=== PATIENT | female | born 1990 | race Caucasian/White ===

== ENCOUNTER 2017-04-10 12:18 | Emergency (ER) | payer MEDICAID ==
[~2017-04-10] VITALS: Ht 167.6 cm; Wt 91.5 kg
[~2017-04-10 12:18] MED LIST: IBUP800T PO; OXYC-302 PO
[2017-04-10] MEDS ORDERED: ACETAMINOPHEN 500 MG TABLET PO ONE (13:00)
[2017-04-10] MEDS ORDERED: KETOROLAC 60 MG/2 ML IM ONE (13:00)
[2017-04-10] MEDS ORDERED: KETOROLAC 30 MG/1 ML ONE (13:04)
[2017-04-10] MEDS ORDERED: ACETAMINOPHEN 500 MG TABLET ONE (13:04)
[2017-04-10 13:27] LABS: BLOOD UREA NITROGEN 13 mg/dL (7-18)
[2017-04-10 13:39] LABS: RAPID INFLUENZA A Negative (Negative); RAPID INFLUENZA B Negative (Negative)
[2017-04-10] MEDS ORDERED: SODIUM CHLORIDE 0.9% 1,000ML IVBOLUS ONE (15:00)
[2017-04-10] MEDS ORDERED: SODIUM CHLORIDE FLUSH 10ML SYR IVF ONE (15:00)
[2017-04-10] MEDS ORDERED: CEFTRIAXONE 1,000 MG in SODIUM CHLORIDE 0.9% 50 ML IVPB ONE (15:00)
[2017-04-10] MEDS ORDERED: CEFTRIAXONE PMX 1GM/50ML 50 ML ONE (15:06)
[2017-04-10] MEDS ORDERED: DIPHENHYDRAMINE 50 MG/ML, 1ML ONE (16:18)
[2017-04-10] MEDS ORDERED: DIPHENHYDRAMINE 50 MG/ML, 1ML IVPush ONE (16:30)
[2017-04-10 17:07] VITALS: BP 123/58
== END 2017-04-10 17:11 | disposition home or self-care (01) ==
LOC: ED 12:59
DX: R50.9 Fever, unspecified (principal)
CPT/HCPCS: 36415; 71010; 80048; 81001; 82040; 83605; 84145; 85025; 87040; 87086; 87400; 96365; 96372; 96375; 99285; J0696; J1200; J1885; J7030

== ENCOUNTER 2019-01-17 12:10 | Emergency (ER) | payer MEDICAID ==
[~2019-01-17] VITALS: Ht 167.6 cm; Wt 92.1 kg
[~2019-01-17 12:10] MED LIST changes: +IBUP-1223 PO; -IBUP800T PO
--- NOTE | 2019-01-17 12:51 | NUR ---
Pt to room from lobby.
--- NOTE | 2019-01-17 13:24 | NUR ---
BREAK RN FOR PRIMARY RN ALISSA. CARE ASSUMED AT THIS TIME. 28 Y/O F PRESENTS TO ER STATING "ABDOMINAL PAIN FOR 1 YEAR BUT WORSE YESTERDAY, PAIN NON-STOP, MY STOMACH FEELS BLOATED AND BIG." RATES PAIN 7/10 IN ABD. CONT PULSE OX, BP MONITORS APPLIED. VSS. ABD SOFT, DISTENDED, TENDER TO PALPATION AT PERIUMBILICAL AREA. BOWEL SOUNDS ACTIVE. FALL PRECAUTIONS IN PLACE. SIDE RAILS UPX2. A&OX4. LAB AT BEDSIDE.
[2019-01-17 13:25] LABS: BASOPHILS # (AUTO) 0.08 x10^3/uL (0-0.1); BASOPHILS % (AUTO) 1 % (0-1); EOSINOPHILS # (AUTO) 0.06 x10^3/uL (0-0.4); EOSINOPHILS % (AUTO) 1 % (1-7); LYMPHOCYTES # (AUTO) 2.36 x10^3/uL (1-3.4); LYMPHOCYTES % (AUTO) 26 % (22-44); MD NO; MEAN CORPUSCULAR HGB CONC 33.2 g/dL (32.4-35.8); MEAN CORPUSCULAR VOLUME 84.4 fL (80-100); MEAN PLATELET VOLUME 8.5 fL (7.4-10.4); MONOCYTES # (AUTO) 0.53 x10^3/uL (0.2-0.8); MONOCYTES % (AUTO) 6 % (2-9); NEUTROPHILS # (AUTO) 6.15 x10^3/uL (1.8-6.8); NEUTROPHILS % (AUTO) 67 % (42-75); PLATELET COUNT 334 x10^3/uL (130-400); RED BLOOD COUNT 4.45 x10^6/uL (3.82-5.3); RED CELL DISTRIBUTION WIDTH 15.8 % (9.6-15.2)
[2019-01-17] MEDS ORDERED: SODIUM CHLORIDE FLUSH 10ML SYR IVF ONE (13:30)
--- NOTE | 2019-01-17 13:30 | NUR ---
AMBULATED TO RESTROOM WITH STEADY GAIT FOR CLEAN CATCH UA. UA COLLECTED AND SENT TO LABL. PT RESTING IN POSITION OF COMFORT. VSS. CALL LIGHT IN REACH
[2019-01-17 13:37] LABS: ALANINE AMINOTRANSFERASE 28 U/L (12-78); ALBUMIN 3.7 g/dL (3.4-5.0); ANION GAP 4 mmol/L (5-15); CALCIUM 8.6 mg/dL (8.5-10.1); CHLORIDE 110 mmol/L (98-107)
[2019-01-17 13:44] LABS: ALKALINE PHOSPHATASE 79 U/L (45-117); BILIRUBIN,TOTAL 0.6 mg/dL (0.2-1.0); TOTAL PROTEIN 8.3 g/dL (6.4-8.2)
[2019-01-17 13:47] LABS: HCG UR SG 1.029 (1.003-1.030); MICROSCOPIC NOT IND
[2019-01-17 13:51] LABS: CULTURE INDICATED? NO
--- NOTE | 2019-01-17 14:00 | NUR ---
PT UP FOR RECHECK.
--- NOTE | 2019-01-17 14:17 | NUR ---
BEDSIDE REPORT AND CARE TO KENNEY EDWARDS AT THIS TIME.
[2019-01-17] MEDS ORDERED: OMNIPAQUE 350 MG/ML, 100ML BOTTLE ONE (15:22)
--- NOTE | 2019-01-17 15:56 | NUR ---
PT PLACED IN RECHECK, CT NEG
[2019-01-17 16:15] VITALS: BP 112/62
== END 2019-01-17 16:18 | disposition home or self-care (01) ==
LOC: ED 14:25
DX: G89.29 Other chronic pain (principal); R10.33 Periumbilical pain
CPT/HCPCS: 36415; 74177; 80053; 81003; 81025; 83690; 85025; 99284; Q9967

== ENCOUNTER 2021-05-04 09:39 | Emergency (ER) | payer MEDICAID ==
[~2021-05-04] VITALS: Ht 167.6 cm; Wt 98.4 kg
[~2021-05-04 09:39] MED LIST changes: -OXYC-302 PO; +OXYC1TAB14 PO
--- NOTE | 2021-05-04 10:06 | NUR ---
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
[2021-05-04] MEDS ORDERED: KETOROLAC 30 MG/1 ML ONE (10:43)
[2021-05-04] MEDS ORDERED: ACETAMINOPHEN 500 MG TABLET ONE (10:43)
[2021-05-04] MEDS ORDERED: KETOROLAC 30 MG/1 ML IM ONE (11:00)
[2021-05-04] MEDS ORDERED: ACETAMINOPHEN 500 MG TABLET PO ONE (11:00)
[2021-05-04 11:06] VITALS: BP 111/68
--- NOTE | 2021-05-04 11:06 | NUR ---
PT RESTING ON GURNEY. NADN. SCOTT.
--- NOTE | 2021-05-04 11:32 | NUR ---
PT CHART REVIEWED AND PLACED FOR RECHECK.
== END 2021-05-04 11:58 | disposition home or self-care (01) ==
LOC: ED 11:50
DX: S93.401A Sprain of unspecified ligament of right ankle, initial encounter (principal); E66.9 Obesity, unspecified; Z90.49 Acquired absence of other specified parts of digestive tract; X58.XXXA Exposure to other specified factors, initial encounter; Y93.89 Activity, other specified; Y92.009 Unspecified place in unspecified non-institutional (private) residence as the place of occurrence of the external cause; Y99.8 Other external cause status
CPT/HCPCS: 73610; 73630; 96372; 99284; J1885